=== PATIENT | female | born 1995 | race Caucasian/White ===

== ENCOUNTER 2016-09-14 12:02 | Emergency (ER) | payer BC ==
[2016-09-14 12:16] VITALS: BP 140/90
--- NOTE | 2016-09-14 12:44 | ED ---
GI/ HPI - HPI Summary HPI Summary: 21F presents for STD testing and Plan B script. She has been having sex with a new partner and is concerned about STDs. She denies any vaginal discharge. She denies any dysuria, hematuria, frequency, or urgency. She denies any fever. - History of Current Complaint Chief Complaint: EDGeneral Time Seen by Provider: 09/14/16 12:18 Stated Complaint: STD TESTING/PLAN B Pain Intensity: 0 - Allergy/Home Medications Allergies/Adverse Reactions: Allergies Allergy/AdvReac Type Severity Reaction Status Date / Time No Known Allergies Allergy Verified 09/14/16 12:18 PMH/Surg Hx/FS Hx/Imm Hx Endocrine/Hematology History: Denies: Hx Anticoagulant Therapy Cardiovascular History: Denies: Hx Hypertension Infectious Disease History: No Infectious Disease History: Denies: Traveled Outside the [place] in Last 30 Days - Family History Known Family History: Negative: Cardiac Disease - Social History Alcohol Use: Occasionally Substance Use Type: Reports: Synthetic Drugs Substance Use Comment - Amount & Last Used: speed Smoking Status (MU): Heavy Every Day Tobacco Smoker Review of Systems Negative: Fever Negative: Chest Pain Negative: Shortness Of Breath Negative: Abdominal Pain All Other Systems Reviewed And Are Negative: Yes Physical Exam Triage Information Reviewed: Yes Vital Signs On Initial Exam: Initial Vitals Temp Pulse Resp BP Pulse Ox 98.0 F 100 16 140/90 100 09/14/16 12:12 09/14/16 12:12 09/14/16 12:12 09/14/16 12:12 09/14/16 12:12 Vital Signs Reviewed: Yes Appearance: Positive: Well-Appearing Skin: Positive: Warm, Dry Head/Face: Positive: Normal Head/Face Inspection Eyes: Positive: Normal, Conjunctiva Clear ENT: Positive: Normal ENT inspection, Pharynx normal, TMs normal Respiratory/Lung Sounds: Positive: Clear to Auscultation, Breath Sounds Present Cardiovascular: Positive: Normal, RRR Abdomen Description: Positive: Nontender, Soft Bowel Sounds: Positive: Present Diagnostics - Vital Signs Vital Signs Temp Pulse Resp BP Pulse Ox 09/14/16 12:16 98.0 F 100 15 140/90 100 09/14/16 12:12 98.0 F 100 16 140/90 100 - Laboratory Lab Statement: Any lab studies that have been ordered have been reviewed, and results considered in the medical decision making process. GIGU Course/Dx - Course Course Of Treatment: 21F presents for STD testing and Plan B script. She has been having sex with a new partner and is concerned about STDs. She denies any vaginal discharge. She denies any dysuria, hematuria, frequency, or urgency. She denies any fever. on exam abdomen soft nontender. patient does not want pelvic just wants urine cultures. told will take up to a week for cultures and that will call her if anything abnormal. neg so gave plan B script. patient understands and agrees with plan - Diagnoses Differential Diagnoses - Female: STD, Urinary Tract Infection, Vaginitis Provider Diagnoses: Screen for STD (sexually transmitted disease) Discharge - Discharge Plan Condition: Good Disposition: HOME Prescriptions: Levonorgestrel (Emergency Oc) [Plan B One-Step] 1.5 mg PO ONCE #5 tab Patient Education Materials: Sexually Transmitted Diseases (ED) Forms: *Work Release Referrals: [facility] [Primary Care Provider] - Additional Instructions: We will call you if you have an STD within a week Use protection when having sex Take plan B within 72 hours of having sex, this will not guarantee that you will not get Return to ED if develop any new or worsening symptoms
[2016-09-14 13:24] LABS: UR Preg Internal Control QC Line Present
== END 2016-09-14 13:54 | disposition home or self-care (01) ==
LOC: ED 12:02
DX: A64 Unspecified sexually transmitted disease (principal); F17.210 Nicotine dependence, cigarettes, uncomplicated
CPT/HCPCS: 36415; 81025; 86703; 87491; 87591; 99282

== ENCOUNTER 2016-10-08 06:28 | Emergency (ER) | payer BC ==
[2016-10-08 06:34] VITALS: BP 144/90
--- NOTE | 2016-10-08 08:19 | ED ---
Linda Manning Auryana, scribed for Gerard Booker MD on 10/08/16 at 0729 . - HPI Summary HPI Summary: 21 year old female presents with possible body fluid exposure at 17:00 last night. Patient reports that she was at a festival and met a few people who had ketamine in a vial with a syringe - look drug orally via syringe. She is unsure if the needle was used prior and is concerned of exposure to "viruses". She denies any abdominal pain, nausea, vomiting, or any other symptoms. LMP - current. SHx is significant for (+) recreational drug use - reports cocaine. - History of Current Complaint Chief Complaint: EDExposureBodyFluid Stated Complaint: POSS EXPOSURE TO STD Time Seen by Provider: 10/08/16 07:14 Date of Incident: 10/07/16 Time of Incident: 17:00 Job Performing at Time of Incident: drug ingestion Mechanism of Injury: While Needlestick: Hollow Needle Blood on Needle: No - unknown Depth of Needlestick: Other - ketamine taken orally via needle Bleeding at Site: No Body Fluid Exposure: Other - concerned of exposure to "viruses" Treatment PA[employer]OR: Other - none needed - Source Information HIV: Unknown Hepatitis: Unknown - Risk Factors Needlestick Risk Factor: Low Risk: Source HIV/Hepatitis B Negative/Asymptomatic PMH/Surg Hx/FS Hx/Imm Hx Endocrine/Hematology History: Denies: Hx Anticoagulant Therapy Cardiovascular History: Denies: Hx Hypertension - Immunization History Date of Tetanus Vaccine: utd Date of Influenza Vaccine: none Infectious Disease History: No Infectious Disease History: Denies: Traveled Outside the [place] in Last 30 Days - Family History Known Family History: Negative: Cardiac Disease - Social History Occupation: [employer] Lives: With Family Alcohol Use: Occasionally Hx Substance Use: Yes Substance Use Type: Reports: Cocaine, Marijuana, Synthetic Drugs Substance Use Comment - Amount & Last Used: speed, ketamine Hx Tobacco Use: Yes Smoking Status (MU): Heavy Every Day Tobacco Smoker Review of Systems Constitutional: Negative Negative: Fever, Chills Eyes: Negative ENT: Negative Cardiovascular: Negative Negative: Chest Pain Respiratory: Negative Negative: Shortness Of Breath Gastrointestinal: Negative Negative: Abdominal Pain, Vomiting, Nausea Genitourinary: Negative Musculoskeletal: Negative Skin: Negative Neurological: Negative Psychological: Normal All Other Systems Reviewed And Are Negative: Yes Physical Exam - Summary Physical Exam Summary: VITAL SIGNS: Reviewed. GENERAL: Patient is a well-developed and nourished FEMALE who is lying comfortable in the stretcher. Patient is not in any acute respiratory distress. HEAD AND FACE: No signs of trauma. No ecchymosis, hematomas or skull depressions. No sinus tenderness. EYES: PERRLA, EOMI x 2, No injected conjunctiva, no nystagmus. EARS: Hearing grossly intact. Ear canals and tympanic membranes are within normal limits. MOUTH: Oropharynx within normal limits. NECK: Supple, trachea is midline, no adenopathy, no JVD, no carotid bruit, no c- spine tenderness, neck with full ROM. CHEST: Symmetric, no tenderness at palpation LUNGS: Clear to auscultation bilaterally. No wheezing or crackles. CVS: Regular rate and rhythm, S1 and S2 present, no murmurs or gallops appreciated. ABDOMEN: Soft, non-tender. No signs of distention. No rebound no guarding, and no masses palpated. Bowel sounds are normal. EXTREMITIES: FROM in all major joints, no edema, no cyanosis or clubbing. NEURO: Alert and oriented x 3. No acute neurological deficits. Speech is normal and follows commands. SKIN: Dry and warm. Triage Information Reviewed: Yes Vital Signs On Initial Exam: Initial Vitals Temp Pulse Resp BP Pulse Ox 97.4 F 90 16 144/90 100 10/08/16 06:30 10/08/16 06:30 10/08/16 06:30 10/08/16 06:30 10/08/16 06:30 Vital Signs Reviewed: Yes - Jose Coma Scale Coma Scale Total: 15 Diagnostics - Vital Signs Vital Signs Temp Pulse Resp BP Pulse Ox 10/08/16 06:35 98.3 F 90 14 144/90 96 10/08/16 06:30 97.4 F 90 16 144/90 100 - Laboratory Lab Statement: Any lab studies that have been ordered have been reviewed, and results considered in the medical decision making process. Needlestick Course/Dx - Course Assessment/Plan: 21 year old female presents with possible body fluid exposure at 17:00 last night. Patient reports that she was at a festival and met a few people who had ketamine in a vial with a syringe - look drug orally via syringe. She is unsure if the needle was used prior and is concerned of exposure to "viruses". She denies any abdominal pain, nausea, vomiting, or any other symptoms. LMP - current. SHx is significant for (+) recreational drug use - reports cocaine. Patient reports that she was exposed to virus due to ketamine orally. She has no complaints. She denies any fever, chills, abdominal pain, chest pain, SOB, or any other complaints. Therefore, the patient will be discharged home with follow up to PCP. Initially, she requested HIV testing, but on nurses arrival to draw labs, patient declines HIV testing. Patient is hemodynamically stable and A&O x3. All questions were answered at patient satisfaction. There were no further complaints or concerns. Lung exam before discharge: CTA B/L. Good air exchange. No wheezing or crackles heard. CVS: S1 and S2 present. No murmurs appreciated. Patient is alert and oriented x 3. Patient is hemodynamically stable. Patient will be discharged home with follow up PCP in the next 2-3 days - Diagnoses Provider Diagnoses: ketamine exposure Discharge - Discharge Plan Condition: Stable Disposition: HOME Patient Education Materials: Body Substance Exposure (ED), Polysubstance Abuse (ED) Referrals: [facility] [Primary Care Provider] - 2 Days The documentation as recorded by the Linda dominguez Auryana accurately reflects the service I personally performed and the decisions made by me, Gerard Booker MD.
== END 2016-10-08 07:31 | disposition home or self-care (01) ==
LOC: ED 06:28
DX: Z77.21 Contact with and (suspected) exposure to potentially hazardous body fluids (principal); F17.200 Nicotine dependence, unspecified, uncomplicated
CPT/HCPCS: 99281